=== PATIENT | female | born 1985 | race Caucasian/White ===

== ENCOUNTER → 2017-10-08 | Outpatient (CLI) | payer OTHER ==
[2017-08-21 17:24] VITALS: BMI 27.4
[~2017-10-08] MED LIST: IBU600 PO; NO MEDS
--- NOTE | 2017-10-12 17:18 | RADIOLOGY IMAGING REPORT ---
FACILITY: [facility] PATIENT NAME: SHANDA SAVAGE : [id number] MR: [id number] V: [id number] EXAM DATE: [id number] ORDERING PHYSICIAN: IAM HECK TECHNOLOGIST: Lisseth Ferrera PROCEDURE:RIGHT BREAST ULTRASOUND COMPARISON:None. INDICATIONS:RIGHT BREAST MASS, CONCERN FOR ABSCESS. FINDINGS: In the 2 o'clock position of the right breast 7 cm from the nipple, there is a complex both solid and cystic collection measuring 2.7 x 2 x 2.2 cm and is consistent with a breast abscess. Findings were discussed with Carmelina CALL at approximately 15:40 on 10/08/17. DIAGNOSTIC CATEGORY 2--BENIGN FINDING. RECOMMENDATIONS: CLINICAL EVALUATION. IMPRESSION: BI-RADS 2: Findings consistent with a 2.7 cm x 2.2 cm x 2 cm breast abscess in the 2 o'clock position of the right breast 7 cm from the nipple. Clinical followup recommended. Dictated by: Lizy Campbell M.D. on 10/08/2017 at 15:57 Transcribed by: PIPPA on 10/08/2017 at 16:41 Approved by: Lizy Campbell M.D. on 10/12/2017 at 17:17 [facility]
== END ==
LOC: US 15:12
PROVIDERS: ATTEND Obstetrics & Gynecology
DX: N61.1 Abscess of the breast and nipple (principal)

== ENCOUNTER 2019-04-19 18:53 | Emergency (ER) | payer OTHER ==
[2017-08-21 17:24] VITALS: Wt 74.8 kg
[~2019-04-19 18:53] MED LIST changes: -ESCI10TA8 PO; -ETHI1TAB25 PO; -MULT-1379 PO
[2019-04-19 18:56] VITALS: BP 145/103
[2019-04-19] MEDS ORDERED: ETHI1TAB25 PO (18:56)
[2019-04-19] MEDS ORDERED: ESCI10TA8 PO (18:56)
--- NOTE | 2019-04-19 18:56 | ER Report ---
History and Physical Time Seen By : 18:53 HPI/ROS CHIEF COMPLAINT: Suicidal thoughts HISTORY OF PRESENT ILLNESS: This is a 33-year-old female who presents to the emergency department for suicidal thoughts, she is in the custody of the [place] [employer]. The patient, according to the police detention attendant and patient took the remainder of her antidepressants approximately 2 weeks ago trying to kill her self. Patient is very anxious, tearful, she states that she needs help, she states that she's had depression, her son is 20 months old. She also states that she went [place] today with a friend, her friend had an appoint ment, the patient drove her to [place], she also states they had a number of drinks, she drove back to [place], showed up at the daycare and according to the police detention attendant the patient was intoxicated at which time the daycare staff contacted dispatch and the patient was arrested and brought to the emergency department. Patient is very hysterical, crying, slurring her words, appears intoxicated. She denies any recent injuries, no fevers or chills. She states she is otherwise healthy. Patient does tell me repeatedly that she does need help but she is not sure how to get to help, she states "I think this is a cry out for help, I need something". The patient also states that when she drinks its typically 3-4 times a week, she drinks seltzer water with alcohol and whiskey shots. The patient also states that she chews a can of skoal Bandits per day. REVIEW OF SYSTEMS: Constitutional: No fever, no chills. Eyes: No discharge. ENT: No sore throat. Cardiovascular: No chest pain, no palpitations. Respiratory: No cough, no shortness of breath. Gastrointestinal: No abdominal pain, no vomiting. Genitourinary: No hematuria. Musculoskeletal: No back pain. Skin: No rashes. Neurological: No headache. Psychological: As above. Allergies: Coded Allergies: No Known Drug Allergies (Unverified , 12/29/10) Home Meds Reported Medications Multivits,Th W-Fe,Other Min (THERA-M) 1 Each Tablet, 1 EACH PO QDAY 04/20/19 Ethinyl Estradiol/Drospirenone (FLOYD 28 TABLET) 1 Each Tablet, 1 EACH PO QDAY 04/19/19 Escitalopram Oxalate (ESCITALOPRAM OXALATE) 10 Mg Tablet, 10 MG PO QDAY, TAB 04/19/19 Discontinued Reported Medications Ibuprofen (Motrin) 600 Mg Tab, 600 MG PO Q6H, #20 0 Refills 12/29/10 Past Medical/Surgical History The patient has no significant past medical or surgical history. Reviewed Nurses Notes: Yes Hx Smoking: No Smoking Status: Never Smoker Hx Substance Use Disorder: No Hx Alcohol Use: Yes Constitutional Vital Sign - Last 24 Hours 04/19/19 18:56 Temp 98.9 Pulse 140 Resp 24 B/P (MAP) 145/103 Pulse Ox 97 O2 Delivery Room Air Physical Exam General Appearance: The patient is alert, has no immediate need for airway protection and no signs of toxicity. Eyes: Pupils equal and round no pallor or injection. ENT, Mouth: Mucous membranes are moist. Respiratory: There are no retractions, lungs are clear to auscultation. Cardiovascular: Regular rate and rhythm. Gastrointestinal: Abdomen is soft and non tender, no masses, bowel sounds normal. Neurological: Alert and oriented 4. Moving oximetry following. No focal neuro deficits Skin: Warm and dry, no rashes. Musculoskeletal: Neck is supple non tender. Extremities are nontender, nonswollen and have full range of motion. Psychological: Very hysterical, crying, anxious though make intermittent eye contact then look away, very fidgety and moving around on the gurney. DIFFERENTIAL DIAGNOSIS: After history and physical exam differential diagnosis was considered for suicidal ideation, depression, bipolar. Medical Decision Making Data Points Result Diagram: 04/19/19193204/19/191932 Laboratory Hematology Test 04/19/19 19:33 White Blood Count 5.0 k/uL (4.5-11.0) Red Blood Count 4.65 M/uL (4.17-5.56) Hemoglobin 14.9 g/dL (12.0-16.0) Hematocrit 42.8 % (34.0-47.0) Mean Corpuscular Volume 92.1 fL (80.0-96.0) Mean Corpuscular Hemoglobin 32.0 pg (26.0-33.0) Mean Corpuscular Hemoglobin Concent 34.8 g/dL (32.0-36.0) Red Cell Distribution Width 12.0 % (11.5-14.5) Platelet Count 221 K/uL (150-450) Mean Platelet Volume 8.6 fL (7.2-11.1) Neutrophils (%) (Auto) 59.9 % (39.4-72.5) Lymphocytes (%) (Auto) 34.3 % (17.6-49.6) Monocytes (%) (Auto) 4.5 % (4.1-12.4) Eosinophils (%) (Auto) 0.1 % (0.4-6.7) L Basophils (%) (Auto) 1.2 % (0.3-1.4) Nucleated RBC Relative Count (auto) 0.1 /100WBC Neutrophils # (Auto) 3.0 K/uL (2.0-7.4) Lymphocytes # (Auto) 1.7 K/uL (1.3-3.6) Monocytes # (Auto) 0.2 K/uL (0.3-1.0) L Eosinophils # (Auto) 0.0 K/uL (0.0-0.5) Basophils # (Auto) 0.1 K/uL (0.0-0.1) Nucleated RBC Absolute Count (auto) 0.01 K/uL Chemistry Test 04/19/19 19:33 Sodium Level 145 mmol/L (137-145) Potassium Level 3.7 mmol/L (3.5-5.0) Chloride Level 110 mmol/L (98-107) Carbon Dioxide Level 19 mmol/L (22-31) Blood Urea Nitrogen 9 mg/dl (7-18) Creatinine 1.20 mg/dl (0.52-1.04) Glomerular Filtration Rate Calc 51.7 Random Glucose 113 mg/dl (75-110) Calcium Level 9.1 mg/dl (8.4-10.2) Magnesium Level 2.0 mg/dl (1.7-2.2) Total Bilirubin 0.3 mg/dl (0.2-1.3) Aspartate Amino Transf (AST/SGOT) 27 U/L (0-35) Alanine Aminotransferase (ALT/SGPT) 28 U/L (0-56) Alkaline Phosphatase 57 U/L (0-126) Total Protein 8.4 g/dl (6.3-8.2) Albumin 4.6 g/dl (3.5-5.0) Thyroid Stimulating Hormone (TSH) 1.64 uIU/ml (0.46-4.68) Toxicology Test 04/19/19 19:33 Salicylates Level < 10 mg/L Salicylate Last Dose Date unk Urine Opiates Screen Negative Acetaminophen Level < 10 ug/ml Urine Barbiturates Screen Negative Ur Tricyclic Antidepressants Screen Negative Urine Phencyclidine Screen Negative Urine Amphetamines Screen Negative Urine Benzodiazepines Screen Negative Urine Cocaine Screen Negative Urine Cannabinoids Screen Negative Serum Alcohol 266 mg/dl Urinalysis Test 04/19/19 19:14 04/19/19 19:33 Urine HCG, Qualitative Negative (NEGATIVE) Urine Color Straw Urine Clarity Clear Urine pH 6.0 pH (4.8-9.5) Urine Specific Eckley 1.003 Urine Protein Negative mg/dL (NEGATIVE) Urine Glucose (UA) Negative mg/dL (NEGATIVE) Urine Ketones Negative mg/dL (NEGATIVE) Urine Blood Moderate (NEGATIVE) Urine Nitrite Negative (NEGATIVE) Urine Bilirubin Negative (NEGATIVE) Urine Urobilinogen Negative mg/dL (0.2-1.9) Urine Leukocyte Esterase Negative (NEGATIVE) Urine RBC <1 /HPF (0-2/HPF) Urine WBC <1 /HPF (0-5/HPF) Urine Squamous Epithelial Cells None /LPF (</=FEW) Urine Bacteria Negative /HPF (NONE-FEW) Urine Hyaline Casts Few /LPF (NONE-FEW) Urine Mucus None /HPF (NONE-FEW) ED Course/Re-evaluation ED Course The patient was admitted to room. A history and physical obtained. Differential diagnoses were considered. A CBC, CMP and psych panel were obtained. UA was collected. A urine tox screen was collected. Laboratory studies unremarkable, negative toxicology screen, negative UA, patient's blood alcohol was 266. The patient was emergency detained by the [place] [employer], after talking with the patient, I did feel that she needs an intensive inpatient mental health evaluation, I did hold the detainment. I am very concerned for the patient's safety, she did overdose on her Lexapro, was not evaluated in the emergency department at this time. Also find it concerning that she was drinking alcohol today and attempting to chart picker her son from the daycare, patient did tell me that this is a "cry for help", she states she feels she does need some help, she also states that she feels that she's needed help for quite a while however she does not feel that she was able to get the support she needed at home. When I did tell the patient about holding detainment, she expressed understanding, I also asked patient if she would be willing to take some medicine to help her relax, she says she would, she took 2 mg of by mouth Ativan she also states that she uses one can of school bandits a day, I did give her a nicotine patch. I did ask her several times throughout her ED stay about suicide and she evaded the question, would cry and say "I need help, I really need some help, I am crying out for help". I did speak with Dr. Mullins, as noted blow, he's accept the pat ient into the behavioral health unit. 04/19/2019 8:48:16 pm I did speak with Dr. Mullins the psychiatrist on-call, he is accepting the patient to the behavioral health unit. The patient has been detained, I did a pulled the detainment. The patient is aware, she's also been given 2 mg by mouth Ativan and a nicotine patch. Patient appears more relaxed. Decision to Disposition Date: Apr 19, 2019 Decision to Disposition Time: 20:47 Depart Departure Latest Vital Signs Vital Signs Date Time Temp Pulse Resp B/P (MAP) Pulse Ox O2 Delivery O2 Flow Rate FiO2 04/19/19 18:56 98.9 140 24 145/103 97 Room Air Impression: Primary Impression: Suicidal ideations Additional Impressions: Depression Alcohol intoxication Condition: Improved Disposition: XFER TO [facility] Problem Qualifiers Additional Impressions: Depression Depression Type: unspecified Qualified Codes: F32.9 - Major depressive disorder, single episode, unspecified Alcohol intoxication Complication of substance-induced condition: with unspecified complication Qualified Codes: F10.929 - Alcohol use, unspecified with intoxication, unspecified ROSALBA CRYSTAL [employer]AK[employer]SEMBLER-BC Apr 19, 2019 18:56
[2019-04-19 19:51] LABS: PLATELET COUNT, AUTOMATED 221 K/uL (150-450)
--- NOTE | 2019-04-19 19:59 | BHS - Psychiatric Evaluation ---
ER - Title 25 MHE Evaluation Title 25 Evaluation Patient Detained By: Law Enforcement ([place] [employer]) Referral Source: [place] [employer] Date Patient Detained: Apr 19, 2019 Time Patient Detained: 17:17 Date Fci Expires: Apr 24, 2019 Time Fci Expires: 17:17 Legal Status: Police Hold: Yes Legal Status: Residence: [facility] Assessment Data Provided By: Patient, Law Enforcement HPI/ROS: This is a 33-year-old female who presents to the emergency department for suicidal thoughts, she is in the custody of the [place] [employer]. The patient, according to the labor relations officer and patient took the remainder of her antidepressants approximately 2 weeks ago trying to kill her self. Patient is very anxious, tearful, she states that she needs help, she states that she's had depression, her son is 20 months old. She also states that she went [place] today with a friend, her friend had an appointment, the patient drove her to [place], she also states they had a number of drinks, she drove back to [place], showed up at the daycare and according to the labor relations officer the patient was intoxicated at which time the daycare staff contacted dispatch and the patient was arrested and brought to the emergency department. Patient is very hysterical, crying, slurring her words, appears intoxicated. She denies any recent injuries, no fevers or chills. She states she is otherwise healthy. Patient does tell me repeatedly that she does need help but she is not sure how to get to help, she states "I think this is a cry out for help, I need something". The patient also states that when she drinks its typically 3-4 times a week, she drinks seltzer water with alcohol and whiskey shots. Admit due to SI or Attempt: Yes Suicide Plan: Has Plan with Access Current Suicide Plan Overdose on antidepressants Alcohol or Drugs Involved: Yes Current Intoxication Info: Shots of whiskey today Is Patient Info Reliable: Yes Is Collateral Info Reliable: Yes Mental Status Exam General Appearance: Tearful, Psychomotor Agitation Speech: Slurred Mood: Hyperthymic Affect: Sad, Tearful, Anxious, Agitated Thought Process: Loose Associations, Flight of Ideas Thought Content: Suicidal Ideation Sensorium: Clear Cognition: Alert & Oriented-Person Memory: Immediate Insight Judgment: Intact Sleep: Insomnia Hallucinations: Denies Delusions: Denies Current Risk & History Current Dangerous Risk Assessm: Current Suicide Ideation, Agitation this Encounter Past Dangerous Risk Assessm: Suicide Ideation-last 6mo, Suicide Attempts-last 6mo Previous Suicide Attempt: Past - High Lethality Number of Attempts/Description One known Previous Psychiatric Illness: Yes Previous Diagnosis/Treatment: Depression Previous Psychiatric Treatment: No Risk Assessment & Disposition Evaluated Risk Assessment: High risk for suicide Impression: Primary Impression: Suicidal ideations Additional Impressions: Alcohol intoxication Depression Meets Mental Illness Req.: Yes Meets Dangerousness Req.: Yes Emergency Fci to be: Upheld Date of Decision: Apr 19, 2019 Time of Decision: 19:56 Patient is Medically Stable at: Yes Disposition: [facility] Problem Qualifiers Additional Impressions: Alcohol intoxication Complication of substance-induced condition: with unspecified complication Qualified Codes: F10.929 - Alcohol use, unspecified with intoxication, unspecified Depression Depression Type: unspecified Qualified Codes: F32.9 - Major depressive disorder, single episode, unspecified ROSALBA CRYSTALP-BC Apr 19, 2019 19:59
[2019-04-19] MEDS ORDERED: LORazepam 1 MG TAB PO ONE (20:15)
[2019-04-19] MEDS ORDERED: NICOTINE 21 MG/24 HR PATCH TD ONE (20:15)
[2019-04-20] MEDS ORDERED: MULT-1379 PO (11:23)
== END 2019-04-19 21:41 ==
LOC: ER 19:36
DX: R45.851 Suicidal ideations (principal); F32.9 Major depressive disorder, single episode, unspecified; F10.929 Alcohol use, unspecified with intoxication, unspecified
CPT/HCPCS: 36415; 80305; 80320; 80329; 81001; 81025; 82040; 82247; 82310; 82374; 82435; 82565; 82947; 83735; 84075; 84132; 84155; 84295; 84443; 84450; 84460; 84520; 85025; 99284

== ENCOUNTER 2019-04-19 21:12 | Inpatient (IN) | payer OTHER ==
[2017-08-21 17:24] VITALS: Ht 188 cm; Wt 74.8 kg
[~2019-04-19] VITALS: Ht 188 cm; Wt 74.8 kg
[~2019-04-19 21:12] MED LIST changes: +ESCI10TA8 PO; +ETHI1TAB25 PO
[2019-04-19] MEDS ORDERED: MAG HYD/AL HYD/SIMETH 30ML UDC PO PRN (21:45)
[2019-04-19] MEDS ORDERED: DIAZEPAM 10 MG TAB PO PRN (21:45)
[2019-04-20 05:34] VITALS: BP 106/64
[2019-04-20] MEDS ORDERED: FOLIC ACID 1 MG TAB PO SCH (09:00)
[2019-04-20] MEDS ORDERED: MULTIVITAMINS TAB PO SCH (09:00)
[2019-04-20] MEDS ORDERED: THIAMINE HCL 100 MG TAB PO SCH (09:00)
[2019-04-20 09:14] VITALS: BP 116/83
[2019-04-20 09:30] VITALS: BP 116/83
[2019-04-20] MEDS ORDERED: MULT-1379 PO (11:23)
--- NOTE | 2019-04-21 10:44 | SCHAAF H&P ---
HISTORY AND PHYSICAL/DISCHARGE SUMMARY Patient admitted for 24 hours before being discharge on a police hold to custody of police. DATE OF ADMISSION: April 19, 2019 DATE OF DISCHARGE: April 20, 2019 Patient was seen at approximately 0900 hours on April 20, 2019 for note concerning this dictation. ATTENDING PHYSICIAN Sunil Mullins MD PRESENTING PROBLEM/CHIEF COMPLAINT This is a 33-year old female who presented to the emergency room on the evening of April 19, 2019 for suicidal ideation. Patient's chief complaint today is that she had a "blood draw" for DUI. HISTORY OF PRESENT ILLNESS Patient's history and present illness indicates that patient was binging on alcohol. Her and a friend apparently went to [facility] to run some errands. Patient and her friend were consuming some alcohol beverages and reported back to the [place] area, where they stopped at the daycare to sheepskin pickler patient's 20- month old child. The daycare noticed patient was visibly intoxicated. Patient reports that she was offered a ride home. She was not blacked out and remembers this, although her friend did not want this. Then, eventually police were summoned. Patient's friend apparently was acting a little belligerent. Both were brought to the ER and patient herself was placed on police hold presumably for DUI. Patient then noted in police report to be emergency detained also as patient had stated to the police that she had overdosed on her Lexapro given by her outpatient provider two weeks earlier and had taken all of it with no subsequent treatment. Thus, emergency detainment was initiated. During interview the next morning on Behavioral Health Unit, patient's alcohol intoxication had resolved according to lab work and patient's historical data involving her drinking itself, no alcohol withdrawal that is clinically relevant was to be expected. Patient appeared overall to be a very accurate historian and stated that although she does report she has been suffering some low mood that had gotten slightly better since starting Lexapro and further away from onset. Patient reports that she has never had suicidal ideations and she adamantly denied overdosing on any of her Lexapro. It is also noted that patient had a Lexapro bottle refilled recently and states that she takes 10 mg at night every night before she goes to bed religiously. When asked about specific stressors, patient admits that certainly the mistake of her getting a DUI is a stressor but she says that his not that bothersome to her and she is ready to go to the police hold and face the consequences. She denied any depressive symptoms today and reported her mood as normal, 5/10. She has some guilt over getting in trouble with the law and adamantly denied any other symptoms of psychiatric concern other than what patient reports as mild depression of onset. This information was verified with her , who is present on the Unit, as well as on the telephone at times and patient's had no reservations about her discharge and verified the patient's information regarding her nonsuicidal nature. Patient agreed to letting therapist on Unit set up some outpatient treatment for when patient discharges from senior care she could have further evaluation and patient was very polite and agreed to this. Patient discharged to the custody of police. MENTAL HEALTH HISTORY Patient has never been an inpatient on the psychiatric unit. Outpatient services: Patient has never received outpatient psychiatric counseling or treatment other than depression where Dr. Lobato [facility] had prescribed 10 mg Lexapro, which patient continues to take. Patient denies ever having any suicide attempts or suicidal intention or ideation. FAMILY PSYCHIATRIC HISTORY Patient adamantly denies any family psychiatric history including alcoholism or completed suicides in the family. PAST MEDICAL HISTORY Patient has one child, 20 months old currently. Patient reports no other significant medical history. ALLERGIES Denies. SOCIAL HISTORY The patient was born in [place] and raised in [place]. Parents were at the time of her , they still are. She has one older sister. Patient herself is a high school graduate, obtained a Bachelor's Degree in management, currently working at the [employer] for the last six months and she says overall her job is okay. Patient reports a good relationship with her . She is x1, again with one child, 20 months old, who she lives with her . LEGAL HISTORY Patient reports likely DUI pending charge now but no previous legal history. SUBSTANCE ABUSE HISTORY Patient admits to probably drinking too much on occasion. However, patient is not believed to be a daily drinker and denies any other significant substance abuse history. PHYSICAL EXAMINATION Please see emergency room note. Notable for dysphoric female, 33 years old, well-groomed, who appears to be under the influence of gross intoxication. Patient overall cooperative, though, with process. Vital signs at the time of admission: Temperature 98.9, pulse 140, respiratory rate 24, blood pressure 145/103 and pulse oximetry 97% on room air. At time of discharge from Behavioral Health Unit, vital signs showed temperature 99.2, pulse 84, respiratory rate 18, blood pressure 116/83 and pulse oximetry 94% on room air. LABORATORY DATA CBC unremarkable. CMP notable for creatinine slightly elevated at 1.20. This may be a state of dehydration. Notable hepatic function well within normal range. TSH 1.64, in normal range. Urinalysis unremarkable. screen negative. Toxicology screen negative for substances of abuse with serum alcohol level of 266 upon admission. MENTAL STATUS EXAMINATION GENERAL APPEARANCE, BEHAVIOR AND ATTITUDE: This is a very polite, cooperative, 33-year old female who appears to be an overall accurate historian. Patient interacting very well with this provider and other treatment team staff. No psychomotor agitation or retardation. No bizarre mannerisms or tics. Patient making good eye contact, nontearful, very calm. SPEECH: Within normal limits. Regular rate, rhythm, volume and tone. MOOD: Described as okay. AFFECT: Full and mood-congruent overall. THOUGHT PROCESSES: Goal-directed, logical. No loose associations or flight of ideas. THOUGHT CONTENT: Free of auditory or visual hallucinations, ideas of reference, thought broadcastings, delusions, obsessions or compulsions. The patient adamantly denying suicidal or homicidal ideations and reports there must have confusion on police report regarding her documented overdose in police report that patient said never happened. Patient's supports this as well. SENSORIUM: Clear. COGNITION: Alert and oriented to person, place, time and situation. MEMORY: Immediate, recent and remote estimated intact. INTELLIGENCE: Average, based on interview. INSIGHT AND JUDGMENT: Considered grossly intact in the absence of alcohol use. ASSESSMENT This is a very pleasant 33-year-old female who seems to interact completely differently outside of alcohol intoxication than she did in the emergency room. Patient appears to be a very accurate historian and states that although she has suffered some mild depression since the of her child, who is now 20 months old. Patient reports that Lexapro 10 mg she takes responsibly. This may be helping. Patient is open to some outpatient treatment but patient stating that she does not need to be on an inpatient unit and is calm and cooperative with knowing that she needs to go to the discharge to custody of police to face charges presumably related to DUI and patient was discharged without incident. DIAGNOSES 1. Alcohol intoxication. 2. depression. 3. Rule out alcohol use disorder. 4. Recent legal stressors. PLAN 1. Patient discharged to custody of police. 2. She would followup with outpatient therapy upon discharge from incarceration as scheduled. 3. Patient would continue Lexapro at 10 mg daily. She is currently taking this in the evening. 4. Patient would continue on Pat prescribed at home as well and multivitamin with minerals daily. 5. Patient agreed to limit alcohol intake if not abstain entirely. 6. No prescriptions were written. 7. Risks, benefits and alternatives of above discharge plan were discussed and informed consent was given to proceed with above discharge plan by this competent patient, patient's and police, who escorted the patient for further review at local senior care. MELVINA
== END 2019-04-20 12:00 | DRG 897 ==
LOC: BHS 21:12
PROVIDERS: ADMIT Psychiatry & Neurology Psychiatry; ATTEND Psychiatry & Neurology Psychiatry
DX: F10.129 Alcohol abuse with intoxication, unspecified (principal); F53.0 Postpartum depression; Z63.79 Other stressful life events affecting family and household

== ENCOUNTER → 2019-04-19 | Outpatient (REF) ==
[2017-08-21 17:24] VITALS: BMI 27.4
[~2019-04-19] MED LIST changes: +ESCI10TA8 PO; +ETHI1TAB25 PO; +MULT-1379 PO
== END ==
LOC: LAB 18:55
PROVIDERS: ATTEND Nurse Practitioner
DX: Z02.83 Encounter for blood-alcohol and blood-drug test (principal)
CPT/HCPCS: 36415; 99001